=== PATIENT | female | born 1990 | race Native Hawaiian/Other Pacific Islander ===

== ENCOUNTER 2016-07-07 17:02 | Emergency (ER) | payer OTHER ==
[2016-07-07 17:10] VITALS: BP 97/65; PULSE 119; RESP 20; O2SAT 100
--- NOTE | 2016-07-07 17:29 | ED PDOC ---
HPI: Fever The Fever Was Measured: Oral Recent Sick Contacts: No Have you had recent travel within the past 21 days to any of the following countries: [place], [place], [place] or [place]?: No Does Patient Have Hx Of Febrile Seizures: No Did The Patient Have A Seizure Today: No Symptoms Associated With Fever: Diarrhea (x1) Additional Comments: The pt is a 25yo female, presents to the ED for evaluation of fever and an episode of diarrhea yesterday. Pt is accompanied by her boyfriend who reports they went out for lunch yesterday and shared a meal after which the pt immediately had an episode of diarrhea. Further reports the pt developed the fever oveernight with some aossicated throat pain. Pt denies any vomiting or known sick contacts. She denies any tylenol use but reports taking aspirin. Currently offers no additional medical complaints. Past Medical History Reviewed: Historical Data, Nursing Documentation, Vital Signs Vital Signs: Last Vital Signs Temp 102.9 F H 07/07/16 17:38 Pulse 119 H 07/07/16 17:06 Resp 20 07/07/16 17:06 BP 97/65 L 07/07/16 17:06 Pulse Ox 100 07/07/16 17:32 - Medical History PMH: No Chronic Diseases - Surgical History Surgical History: No Surg Hx - Family History Family History: States: No Known Family Hx - Living Arrangements Living Arrangements: With Friends/Others - Home Medications Home Medications: Ambulatory Orders Medication Instructions Recorded Acetaminophen [Acetaminophen Extra 2 tab PO Q6 PRN #24 tablet 07/07/16 Strength] Ibuprofen [Motrin] 600 mg PO Q8 PRN #21 tab 07/07/16 - Allergies Allergies/Adverse Reactions: Allergies Allergy/AdvReac Type Severity Reaction Status Date / Time No Known Allergies Allergy Verified 07/07/16 17:06 Review of Systems ROS Statement: Except As Marked, All Systems Reviewed And Found Negative Constitutional: Positive for: Fever ENT: Positive for: Throat Pain Gastrointestinal: Positive for: Diarrhea (x 1). Negative for: Nausea, Vomiting Physical Exam - Reviewed Nursing Documentation Reviewed: Yes Vital Signs Reviewed: Yes - Physical Exam Appears: Positive for: Well, Non-toxic, No Acute Distress Head Exam: Positive for: ATRAUMATIC, NORMAL INSPECTION, NORMOCEPHALIC Skin: Positive for: Normal Color, Warm Eye Exam: Positive for: Normal appearance ENT: Positive for: Normal ENT Inspection, TM Is/Are (normal), Pharyngeal Erythema (mild) Neck: Positive for: Normal Cardiovascular/Chest: Positive for: Regular Rate, Rhythm Respiratory: Positive for: Normal Breath Sounds. Negative for: Respiratory Distress Neurologic/Psych: Positive for: Alert, Oriented - ECG O2 Sat by Pulse Oximetry: 100 (RA) Pulse Ox Interpretation: Normal - Progress ED Course And Treament: strep neg influenza a/b neg Medical Decision Making Medical Decision Making: Time: 1720 Impression: Fever, possible URI Plan: -- Tylenol 975 mg PO -- Rapid flu -- Rapid Strep --Reassess Scribe Attestation: All records were documented by Rose Aguirre, acting as a Scribe for JAYDE Flores. Provider Scribe Attestation: All medical record entries made by the Scribe were at my direction and personally dictated by me. I have reviewed the chart and agree that the record accurately reflects my personal performance of the history, physical exam, medical decision making, and the department course for this patient. I have also personally directed, reviewed, and agree with the discharge instructions and disposition. Disposition - Clinical Impression Clinical Impression: Viral illness - Patient ED Disposition Is Patient to be Admitted: No - Disposition Referrals: [facility] [Outside] Disposition: Routine/Home Disposition Time: 18:31 Condition: FAIR Prescriptions: Acetaminophen [Acetaminophen Extra Strength] 2 tab PO Q6 PRN #24 tablet PRN Reason: Fever >100.4 F Ibuprofen [Motrin] 600 mg PO Q8 PRN #21 tab PRN Reason: Fever >100.4 F Instructions: Pharyngitis (ED) Forms: [facility] ED School/Work Excuse
[2016-07-07 18:32] VITALS: TEMP 100.5
== END 2016-07-07 18:53 | disposition home or self-care (01) ==
LOC: H.ER 17:02
DX: B34.9 Viral infection, unspecified (principal)